=== PATIENT | female | born 1945 ===

== ENCOUNTER 2023-05-29 06:00 | Day surgery (SDC) | payer OTHER ==
[~2023-05-29 06:00] MED LIST: ATACAND32 MG PO; CRESTOR5 MG PO; INDAPAMIDE1.25 MG PO; SYNTHROID125 MCG PO; ZETIA10 MG PO
== END 2023-05-29 15:05 | disposition home or self-care (01) ==
LOC: CIR.AMB 06:00
PROVIDERS: ATTEND Specialist
DX: E65 Localized adiposity (principal); L98.7 Excessive and redundant skin and subcutaneous tissue; Z20.822 Contact with and (suspected) exposure to COVID-19; I10 Essential (primary) hypertension